=== PATIENT | female | born 1950 ===

== ENCOUNTER 2016-11-08 10:13 | Emergency (ER) | payer MEDICAID ==
[2016-11-08 10:17] VITALS: BMI 29.7
[2016-11-08 10:18] VITALS: RESP 18
[2016-11-08] MEDS ORDERED: Sodium Chloride 0.9% 1,000 ML IV ONE (10:43)
[2016-11-08 11:04] LABS: RBC URINE 573 /hpf (0-3); URINE BILIRUBIN NEGATIVE (NEGATIVE); URINE BLOOD 3+ (NEGATIVE); URINE COLOR Yellow (YELLOW); URINE GLUCOSE (UA) NORMAL (Normal); URINE KETONE NEGATIVE (NEGATIVE); URINE LEUKOCYTE ESTERASE NEG Leu/uL (Negative); URINE PROTEIN 2+ mg/dL (NEGATIVE); URINE UROBILINOGEN NORMAL mg/dL (0.2-1.0)
[2016-11-08] MEDS ORDERED: Sodium Chloride 0.9% 1,000 ML ONE (11:04)
[2016-11-08 11:08] LABS: BASO % 0.6 % (0.0-2.0); EOS # 0.1 K/uL (0.0-0.7); EOS % 1.1 % (0.0-4.0); LYMPH # 1.9 K/uL (1.0-4.3); LYMPH % 27.3 % (20.0-40.0); MEAN CELL VOLUME 92.9 fL (81.0-99.0); MEAN CORPUSCULAR HEMOGLOBIN 31.4 pg (27.0-31.0); MEAN CORPUSCULAR HGB CONC 33.8 g/dL (33.0-37.0); MEAN PLATELET VOLUME 9.1 fL (7.2-11.7); MONO # 0.5 K/uL (0.0-0.8); MONO % 7.2 % (0.0-10.0); RED CELL DISTRIBUTION WIDTH 13.2 % (11.5-14.5); WHITE BLOOD COUNT 7.1 K/uL (4.8-10.8)
[2016-11-08 11:16] LABS: CHLORIDE 107 mmol/L (98-107); POTASSIUM 4.1 mmol/L (3.6-5.2); SODIUM 142 mmol/L (132-148)
[2016-11-08 11:19] LABS: ALB/GLOB RATIO 1.3 (1.0-2.1); ALKALINE PHOSPHATASE 60 U/L (38-126); ALT/SGPT 26 U/L (9-52); AST/SGOT 26 U/L (14-36); BILIRUBIN,TOTAL 1.5 mg/dL (0.2-1.3); BLOOD UREA NITROGEN 19 mg/dL (7-17); CALCIUM 9.4 mg/dl (8.6-10.4); CARBON DIOXIDE 28 mmol/L (22-30); GFR AFRICAN-AMERICAN > 60; GLUCOSE,RANDOM 96 mg/dL (65-105); TOTAL PROTEIN 7.1 g/dL (6.3-8.3)
--- NOTE | 2016-11-08 12:07 | C.PDOC ---
History Of Present Illness 65 y/o female, postmenopausal, presents to ED for evaluation of pelvic cramping and intermittent vaginal bleeding for the last 4 days. Pt denies previous episode of postmenopausal vaginal bleeding. (+) dysuria. Otherwise, denies nausea, vomiting, diarrhea, or fever. Time Seen by Provider: 11/08/16 10:22 Chief Complaint (Nursing): Female Genitourinary History Per: Patient History/Exam Limitations: no limitations Onset/Duration Of Symptoms: Days (4) Current Symptoms Are (Timing): Still Present Severity: Mild Location Of Pain/Discomfort: Suprapubic Quality Of Discomfort: "Pain" Associated Symptoms: denies: Urinary Symptoms Exacerbating Factors: None Alleviating Factors: None Additional History Per: Patient Abnormal Vaginal Bleeding: Yes Past Medical History Reviewed: Historical Data, Nursing Documentation, Vital Signs Vital Signs: Last Vital Signs Temp 97.6 F 11/08/16 13:40 Pulse 50 L 11/08/16 13:40 Resp 18 11/08/16 13:40 BP 117/67 11/08/16 13:40 Pulse Ox 98 11/08/16 13:40 - Medical History PMH: Fractures, HTN, Hypercholesterolemia, Kidney Stones Surgical History: Appendectomy Family History: States: No Known Family Hx - Social History Hx Tobacco Use: No Hx Alcohol Use: No Hx Substance Use: No - Immunization History Hx Tetanus Toxoid Vaccination: No Hx Influenza Vaccination: No Hx Pneumococcal Vaccination: No Review Of Systems Except As Marked, All Systems Reviewed And Found Negative. Constitutional: Negative for: Fever, Chills Gastrointestinal: Positive for: Abdominal Pain. Negative for: Nausea, Vomiting , Diarrhea, Constipation Genitourinary: Positive for: Dysuria, Vaginal Bleeding, Pelvic Pain. Negative for: Frequency, Vaginal Discharge Musculoskeletal: Negative for: Back Pain Physical Exam - Physical Exam Appears: Well, Non-toxic, No Acute Distress Skin: Normal Color, Warm, Dry Eye(s): bilateral: Normal Inspection Oral Mucosa: Moist Cardiovascular: Rhythm Regular Respiratory: Normal Breath Sounds, No Rales, No Rhonchi, No Wheezing Gastrointestinal/Abdominal: Bowel Sounds, Soft, Tenderness (mild suprapubic TTP) , No Guarding, No Rebound, Other ((-)McBurney's) Back: Normal Inspection, No CVA Tenderness Extremity: Bilateral: Atraumatic, Normal ROM Neurological/Psych: Oriented x3 ED Course And Treatment - Laboratory Results Result Diagrams: 11/08/16 11:04 11/08/16 11:04 O2 Sat by Pulse Oximetry: 100 (on RA) Pulse Ox Interpretation: Normal - CT Scan/US Transvaginal US Other Rad Studies (CT/US): Read By Radiologist, Radiology Report Reviewed CT/US Interpretation: HISTORY: postmenopausal bleeding. COMPARISON: None available. TECHNIQUE: Real-time transabdominal pelvic ultrasound was performed. In addition a transvaginal pelvic ultrasound was necessary to better depict pelvic anatomy. FINDINGS: UTERUS: Measures 7.0 x 3.5 x 4.0 cm. Anteverted. ENDOMETRIUM: Measures 1.7 cm in diameter. Heterogeneous appearance with evidence of internal echoes, possibly blood products. CERVIX: No cervical abnormality identified. RIGHT OVARY: Not visualized. LEFT OVARY: Not visualized. FREE FLUID: No significant free fluid noted. OTHER FINDINGS : None. IMPRESSION: Markedly thickened endometrium measuring approximately 1.7 cm with heterogeneous appearance including internal echoes, possibly related to blood products. Recommend further evaluation as indicated. Underlying malignancy is not excluded. Bilateral ovaries are not visualized. Progress Note: Blood work, UA, transvaginal ultrasound ordered and reviewed. Patient was given IV fluids, and IV Morphine. Reevaluation Time: 13:30 Reassessment Condition: Improved (On reassessment, patient is resting comfortably, in no pain/distress. On exam, abdomen is soft and nontender. Blood work unremarkable except for elevated CA125. US shows thickened endometrium. Patient understands that she needs to follow up with [facility] within 1 week for further evaluation - was given copies of blood work and US to bring to her ob/gym Dr. Hardwick. UA (-) for UTI. She understands she should return to ED if symptoms worsen.) Disposition Counseled Patient/Family Regarding: Diagnosis, Need For Followup, Rx Given - Disposition Referrals: Justin Hardwick MD [Medical Doctor] - Disposition: HOME/ ROUTINE Disposition Time: 13:30 Condition: STABLE Additional Instructions: SIGA MONIQUE OB / GANG RIDER DENTRO DE 1 SEMANA USE MEDICAMENTOS PARA EL DOLOR ERIC SEA NECESARIO DEVUELVA A LA ELVIS DE EMERGENCIA SI LOS SNTOMAS EMPEORARAN Prescriptions: Naproxen [Naprosyn Tab] 375 mg PO BID PRN #15 tab PRN Reason: pain Instructions: Dysfunctional Uterine Bleeding (ED) Forms: [facility] (Welsh) Print Language: CZECH - Clinical Impression Clinical Impression: Postmenopausal bleeding - Scribe Statement The provider has reviewed the documentation as recorded by the Scribe Alessio Loomis All medical record entries made by the Champibe were at my direction and personally dictated by me. I have reviewed the chart and agree that the record accurately reflects my personal performance of the history, physical exam, medical decision making, and the department course for this patient. I have also personally directed, reviewed, and agree with the discharge instructions and disposition.
--- NOTE | 2016-11-08 13:10 | US ---
HISTORY: postmenopausal bleeding COMPARISON: None available. TECHNIQUE: Real-time transabdominal pelvic ultrasound was performed. In addition a transvaginal pelvic ultrasound was necessary to better depict pelvic anatomy. FINDINGS: UTERUS: Measures 7.0 x 3.5 x 4.0 cm. Anteverted. ENDOMETRIUM: Measures 1.7 cm in diameter. Heterogeneous appearance with evidence of internal echoes, possibly blood products. CERVIX: No cervical abnormality identified. RIGHT OVARY: Not visualized. LEFT OVARY: Not visualized. FREE FLUID: No significant free fluid noted. OTHER FINDINGS: None. IMPRESSION: Markedly thickened endometrium measuring approximately 1.7 cm with heterogeneous appearance including internal echoes, possibly related to blood products. Recommend further evaluation as indicated. Underlying malignancy is not excluded. Bilateral ovaries are not visualized.
[2016-11-08 13:44] VITALS: BP 117/67; PULSE 50; TEMP 97.6
[2016-11-09 23:55] VITALS: O2SAT 100
== END 2016-11-08 13:58 | disposition home or self-care (01) ==
LOC: C.ER 10:13
DX: N95.0 Postmenopausal bleeding (principal)
CPT/HCPCS: 76830; 76856; 80053; 81001; 85025; 86304; 87086; 96361; 96374; 99285; J2270; J7040

== ENCOUNTER 2017-04-07 10:03 | Inpatient (IN) | payer MEDICAID ==
[2017-04-07 10:25] VITALS: BMI 29.0
[2017-04-07] MEDS ORDERED: Sodium Chloride 0.9% 1,000 ML IV ONE (10:41)
[2017-04-07] MEDS ORDERED: Sodium Chloride 0.9% 1,000 ML ONE (10:57)
--- NOTE | 2017-04-07 10:59 | C.PDOC ---
History Of Present Illness 66 y/o female with PMHx of Diverticulitis and HTN presents to ED with complaints of diffuse abdominal pain but worse on LLQ "for a few days". Patient reports 2 days ago she ate at a buffet and thinks that might have triggered symptoms. Patient also complaints of non bloody diarrhea and emesis. Patient denies fever, chills, back pain, urinary symptoms or any other complaints at this time. Time Seen by Provider: 04/07/17 10:26 Chief Complaint (Nursing): Abdominal Pain History Per: Patient History/Exam Limitations: no limitations Onset/Duration Of Symptoms: Days Current Symptoms Are (Timing): Still Present Location Of Pain/Discomfort: Diffuse, LLQ Past Medical History Reviewed: Historical Data, Nursing Documentation, Vital Signs Vital Signs: Last Vital Signs Temp 97.3 F L 04/08/17 08:00 Pulse 63 04/08/17 08:00 Resp 20 04/08/17 08:00 BP 125/75 04/08/17 08:00 Pulse Ox 99 04/08/17 08:00 - Medical History PMH: Diverticulitis, Fractures, HTN, Hypercholesterolemia, Kidney Stones Surgical History: Appendectomy Family History: States: No Known Family Hx - Social History Hx Tobacco Use: No Hx Alcohol Use: No Hx Substance Use: No - Immunization History Hx Tetanus Toxoid Vaccination: No Hx Influenza Vaccination: No Hx Pneumococcal Vaccination: No Review Of Systems Constitutional: Negative for: Fever, Chills Gastrointestinal: Positive for: Vomiting, Abdominal Pain, Diarrhea. Negative for: Hematochezia, Hematemesis Genitourinary: Negative for: Dysuria, Hematuria Musculoskeletal: Negative for: Back Pain Skin: Negative for: Rash Physical Exam - Physical Exam Appears: Non-toxic, No Acute Distress Skin: Warm, Dry, No Rash Head: Atraumatic, Normacephalic Eye(s): bilateral: Normal Inspection Oral Mucosa: Moist Neck: Normal ROM, Supple Cardiovascular: Rhythm Regular Respiratory: Normal Breath Sounds, No Rales, No Rhonchi, No Wheezing Gastrointestinal/Abdominal: Soft, Tenderness (Diffuse worse on LLQ), No Guarding , No Rebound Back: No CVA Tenderness Extremity: Normal ROM, Capillary Refill (<2 seconds) Neurological/Psych: Oriented x3 ED Course And Treatment - Laboratory Results Result Diagrams: 04/08/17 07:18 04/08/17 07:18 O2 Sat by Pulse Oximetry: 97 (RA) Pulse Ox Interpretation: Normal Medical Decision Making Medical Decision Making: ro pancreatitsi, diverticulitis, colitis- labs imaging pending 528: pt reassesed: pain improving. requested admission for elevated lipase. pt initially declined, however now agrees. discussed with dr del castillo accepts for admission. Disposition - Disposition Disposition: HOSPITALIZED Disposition Time: 17:01 Condition: UNKNOWN - Clinical Impression Clinical Impression: Pancreatitis, Diverticulitis - Scribe Statement The provider has reviewed the documentation as recorded by the Scribjoselyn Dickson All medical record entries made by the Scribe were at my direction and personally dictated by me. I have reviewed the chart and agree that the record accurately reflects my personal performance of the history, physical exam, medical decision making, and the department course for this patient. I have also personally directed, reviewed, and agree with the discharge instructions and disposition. Decision To Admit - Pt Status Changed To: Hospital Disposition Of: Inpatient - Admit Certification Admit to Inpatient:: After my assessment, the patient will require hospitalization for at least two midnights. This is because of the severity of symptoms shown, intensity of services needed, and/or the medical risk in this patient being treated as an outpatient. - InPatient: Physician Admission Certification:: pt with pancreatitis - . Bed Request Type: Regular Admitting Physician: Frankie Del Castillo Jr. Patient Diagnosis: Pancreatitis, Diverticulitis
[2017-04-07 11:26] LABS: BASO % 0.3 % (0.0-2.0); EOS # 0.2 K/uL (0.0-0.7); EOS % 1.9 % (0.0-4.0); HEMOGLOBIN 13.3 g/dL (11.0-16.0); LYMPH % 24.6 % (20.0-40.0); MEAN CELL VOLUME 91.6 fL (81.0-99.0); MEAN CORPUSCULAR HEMOGLOBIN 31.6 pg (27.0-31.0); MEAN CORPUSCULAR HGB CONC 34.5 g/dL (33.0-37.0); MEAN PLATELET VOLUME 9.3 fL (7.2-11.7); MONO # 0.8 K/uL (0.0-0.8); MONO % 10.5 % (0.0-10.0); NEUT % 62.7 % (50.0-75.0); RBC 4.22 Mil/uL (3.80-5.20); RED CELL DISTRIBUTION WIDTH 12.9 % (11.5-14.5)
[2017-04-07 11:29] LABS: INR 0.9; PROTHROMBIN TIME 10.7 SECONDS (9.7-12.2)
[2017-04-07 11:53] LABS: ALB/GLOB RATIO 1.3 (1.0-2.1); ALBUMIN 3.9 g/dL (3.5-5.0); ALT/SGPT 25 U/L (9-52); AST/SGOT 26 U/L (14-36); BLOOD UREA NITROGEN 27 mg/dL (7-17); GFR AFRICAN-AMERICAN > 60; GFR NON-AFRICAN AMERICAN 50; LIPASE 656 U/L (23-300)
[2017-04-07] MEDS ORDERED: Iohexol 300 100 ML IJ ONE (12:31)
[2017-04-07 14:08] LABS: SQUAMOUS EPITHIAL 3 /hpf (0-5); URINE BILIRUBIN NEGATIVE (NEGATIVE); URINE BLOOD NEGATIVE (NEGATIVE); URINE CLARITY Clear (Clear); URINE COLOR Yellow (YELLOW); URINE GLUCOSE (UA) NORMAL (Normal); URINE LEUKOCYTE ESTERASE NEG Leu/uL (Negative); URINE NITRATE NEGATIVE (NEGATIVE); URINE PROTEIN NEGATIVE (NEGATIVE); URINE UROBILINOGEN NORMAL mg/dL (0.2-1.0)
[2017-04-07] MEDS ORDERED: Iodixanol 320 MG/ML 100 ML BOTTLE IV ONE (15:48)
--- NOTE | 2017-04-07 16:49 | CT ---
PROCEDURE: CT scan of the abdomen and pelvis HISTORY: Dated 04/07/2017 epigastric and left lower quadrant pain COMPARISON: No prior study available comparison correlation made with pelvic ultrasound 11/08/2016. . TECHNIQUE: Contrast dose: Radiation dose: Total exam DLP = 921.39 mGy-cm. This CT exam was performed using one or more of the following dose reduction techniques: Automated exposure control, adjustment of the mA and/or kV according to patient size, and/or use of iterative reconstruction technique. FINDINGS: LOWER THORAX: Mild passive/dependent type atelectasis both posterior lower lung herrera. No consolidation or effusion. . No evidence basilar pneumothorax. Heart size is mildly enlarged. No significant pericardial effusion. Tiny hiatal hernia. LIVER: Liver exhibits normal size measuring approximately 15 cm in CC dimension. No obvious hepatic mass collection or calcification. . Portal and splenic veins are opacified. GALLBLADDER AND BILE DUCTS: Gallbladder has been surgically resected with metallic clips in the gallbladder fossa region. PANCREAS: The pancreas pancreas is grossly unremarkable without masses collections or calcifications. . SPLEEN: Unremarkable. ADRENALS: There are no adrenal lesions seen. KIDNEYS AND URETERS: Kidneys that demonstrate relatively symmetric nephrograms. . There a small cyst lateral aspect midpole left kidney that measures approximately 14.7 mm and a 2nd small cyst seen along the medial border mid to lower pole measuring 12 mm. . Small exophytic cysts posterolateral aspect upper pole right kidney and posterior midpole right kidney VASCULATURE: Unremarkable. No aortic aneurysm. BOWEL: Evaluation of bowel is limited due to the lack of oral contrast material. Stomach is incompletely distended. Visualized small bowel exhibit normal contour and caliber. No evidence mechanical small bowel obstruction. . Apparent postoperative changes involving the cecum with what appears represent the radiopaque at anastomosis suture material. Clinical correlation with surgical history recommended. . There are multiple colonic diverticula the bulk which seen along the sigmoid and descending colon. There is however a segment of distal descending -sigmoid colon junction exhibits wall thickening. Rule out mild diverticulitis or colitis. Clinical correlation recommended. APPENDIX: Normal appendix. PERITONEUM: Unremarkable. No free fluid. No free air. LYMPH NODES: Multiple small nonspecific retroperitoneal lymph nodes. . BLADDER: Urinary bladder is incompletely distended which presumably in part accounts thick-walled appearance. Possibility of a cystitis not excluded. . REPRODUCTIVE: Status post hysterectomy. BONES: No the osseous structures appear grossly intact however minor multilevel degenerative spondylosis of the lower thoracic and lumbar spine. OTHER FINDINGS: None. IMPRESSION: Diverticulosis. There is a segment distal descending/sigmoid colon junction that exhibits wall thickening with colonic diverticula. Rule out the mild diverticulitis or possibly colitis. Postoperative changes cecum as detailed above. . Bilateral renal cysts. Status post cholecystectomy and hysterectomy. .
[2017-04-07 19:27] VITALS: RESP 20
[2017-04-07] MEDS: Sodium Chloride 0.9% 1,000 ML IV SCH (20:39)
--- NOTE | 2017-04-07 21:37 | CP.PCM.HP ---
History of Present Illness - History of Present Illness History of Present Illness: CC: " Lower abdominal pain" HPI: Patient is a 66 year old female with past medical history of gout , diverticulitis, hypercholesterolemia and hypertension, who presents with complaints of lower abdominal pain (RLQ>LLQ) with moderate epigastric pain, which started yesterday. Patient states that at the onset of her symptoms, her pain was 10/10 and drinking club soda and resting provided minimal relief. Patient denies any radiation and currently rates her pain a 4/10 after receiving pain medication in the ED. Patient admits to associated symptoms of diarrhea; she has loose stool x4 yesterday and x2 prior to coming to the ED. Patient admits to nausea and 2 episodes of vomiting. Patient denies chest pain, palpitations, SOB, flank pain, hematochezia, fever and chills. PMD: Dr. Quinton Phelps PMHx: Gout, diverticulitis, hypercholesterolemia and hypertension\\ PSHx: Appendectomy at age 14, Cholecystectomy (in the ), hysterectomy ( January) FHx: Father ( HTN) Medications: As per josey review Allergies: Penicillins; rxn: Hives Social Hx: lives with partner, unemployed, > 10 years of tobacco use ( 1 pack per week), Denies current or former use of ETOH and illicit drugs Present on Admission - Present on Admission Any Indicators Present on Admission: No Review of Systems - Constitutional Constitutional: Headache. absent: Chills, Fever, Weakness - EENT Ears: absent: Dizziness - Cardiovascular Cardiovascular: absent: Chest Pain, Chest Pain at Rest, Chest Pain with Activity , Diaphoresis, Dyspnea, Lightheadedness, Palpitations - Respiratory Respiratory: absent: Dyspnea - Gastrointestinal Gastrointestinal: Abdominal Pain, Diarrhea, Nausea, Vomiting - Neurological Neurological: absent: Dizziness - Psychiatric Psychiatric: Change in Appetite. absent: Anxiety - Hematologic/Lymphatic Hematologic: absent: Easy Bruising Past Patient History - Past Social History Smoking Status: Former Smoker - CARDIAC Hx Hypercholesterolemia: Yes Hx Hypertension: Yes - RENAL Hx Kidney Stones: Yes - MUSCULOSKELETAL/RHEUMATOLOGICAL Hx Fractures: Yes - GASTROINTESTINAL Hx Diverticulitis: Yes - PSYCHIATRIC Hx Substance Use: No - SURGICAL HISTORY Hx Appendectomy: Yes - ANESTHESIA Hx Anesthesia: Yes Hx Anesthesia Reactions: No Meds Home Medications: Home Medication List Medication Instructions Recorded Confirmed Type Ciprofloxacin [Cipro] 500 mg PO BID #14 tab 04/07/17 Rx metroNIDAZOLE [Flagyl] 500 mg PO TID #21 tab 04/07/17 Rx Allergies/Adverse Reactions: Allergies Allergy/AdvReac Type Severity Reaction Status Date / Time Penicillins Allergy RASH Verified 04/07/17 10:36 Physical Exam - Constitutional Appears: No Acute Distress - Head Exam Head Exam: ATRAUMATIC, NORMAL INSPECTION - Eye Exam Eye Exam: EOMI, Normal appearance - ENT Exam ENT Exam: Mucous Membranes Moist - Respiratory Exam Respiratory Exam: Clear to Auscultation Bilateral, NORMAL BREATHING PATTERN. absent: Rales, Rhonchi, Wheezes - Cardiovascular Exam Cardiovascular Exam: REGULAR RHYTHM, +S1, +S2 - GI/Abdominal Exam GI & Abdominal Exam: Normal Bowel Sounds, Soft, Tenderness. absent: Guarding, Hypoactive Bowel Sounds, Mass, Organomegaly - Extremities Exam Extremities exam: Positive for: normal inspection. Negative for: calf tenderness, pedal edema - Back Exam Back exam: CVA tenderness (R). absent: CVA tenderness (L) Additional comments: No signs retroperitoneal hemorrhage, no jaundice - Psychiatric Exam Psychiatric exam: Normal Affect, Normal Mood - Skin Skin Exam: Normal Color Results - Vital Signs Recent Vital Signs: Last Vital Signs Temp 97.9 F 04/07/17 19:26 Pulse 63 04/07/17 19:26 Resp 20 04/07/17 19:26 BP 103/67 04/07/17 19:26 Pulse Ox 95 04/07/17 19:26 - Labs Result Diagrams: 04/07/17 11:13 04/07/17 11:13 Labs: Laboratory Results - last 24 hr 04/07/17 04/07/17 04/07/17 11:13 11:13 11:13 WBC 8.0 RBC 4.22 Hgb 13.3 Hct 38.6 MCV 91.6 MCH 31.6 H MCHC 34.5 RDW 12.9 Plt Count 211 MPV 9.3 Neut % (Auto) 62.7 Lymph % (Auto) 24.6 Sanders % (Auto) 10.5 H Eos % (Auto) 1.9 Baso % (Auto) 0.3 Neut # 5.0 Lymph # 2.0 Sanders # 0.8 Eos # 0.2 Baso # 0.0 PT 10.7 INR 0.9 APTT 26 Sodium 131 L Potassium 3.5 L Chloride 95 L Carbon Dioxide 30 Anion Gap 11 BUN 27 H Creatinine 1.1 Est GFR ( Amer) > 60 Est GFR (Non-Af Amer) 50 Random Glucose 90 Calcium 9.0 Total Bilirubin 1.6 H AST 26 ALT 25 Alkaline Phosphatase 71 Total Protein 6.8 Albumin 3.9 Globulin 2.9 Albumin/Globulin Ratio 1.3 Lipase 656 H Urine Color Urine Clarity Urine pH Ur Specific [place] Urine Protein Urine Glucose (UA) Urine Ketones Urine Blood Urine Nitrate Urine Bilirubin Urine Urobilinogen Ur Leukocyte Esterase Urine WBC (Auto) Urine RBC (Auto) Ur Squamous Epith Cells 04/07/17 14:02 WBC RBC Hgb Hct MCV MCH MCHC RDW Plt Count MPV Neut % (Auto) Lymph % (Auto) Sanders % (Auto) Eos % (Auto) Baso % (Auto) Neut # Lymph # Sanders # Eos # Baso # PT INR APTT Sodium Potassium Chloride Carbon Dioxide Anion Gap BUN Creatinine Est GFR ( Amer) Est GFR (Non-Af Amer) Random Glucose Calcium Total Bilirubin AST ALT Alkaline Phosphatase Total Protein Albumin Globulin Albumin/Globulin Ratio Lipase Urine Color Yellow Urine Clarity Clear Urine pH 5.0 Ur Specific [place] 1.011 Urine Protein Negative Urine Glucose (UA) Normal Urine Ketones Negative Urine Blood Negative Urine Nitrate Negative Urine Bilirubin Negative Urine Urobilinogen Normal Ur Leukocyte Esterase Neg Urine WBC (Auto) 1 Urine RBC (Auto) 2 Ur Squamous Epith Cells 3 Assessment & Plan (1) Abdominal pain Assessment and Plan: R/o pancreatitis, diverticulitis and colitis: On admission: Labs: Lipase (656), WBC: 8.0 Abd/Pelvis CT: Diverticulosis. There is a segment distal descending/sigmoid colon junction that exhibits wall thickening with colonic diverticula. Rule out the mild diverticulitis or possibly colitis. The pancreas pancreas is grossly unremarkable without masses collections or calcifications - Monitor lipase - f/u lipid panel - NPO - NS @ 125 mls/hr - Dilaudid 0.5mg IVP Q6H prn for pain control Status: Acute (2) Hypertension Assessment and Plan: Continue home medications: - Atenolol 50mg PO daily ( with BP and pulse parameter) - Chlorthalidone 25mg PO daily Status: Acute (3) Hypercholesteremia Assessment and Plan: Continue home medications: * Lipitor 20mg PO daily or crestor 10mg PO daily Status: Acute (4) Hx of gout Assessment and Plan: Continue home medication: * Allopurinol 100mg PO daily Status: Acute (5) Prophylactic measure Assessment and Plan: NPO GI: Protonix 20mg PO daily DVT: score of 2; SCDs and heparin 5,000 units Q12H Plans and management discussed with attending, Dr. Malcolm Status: Acute
[2017-04-07] MEDS ORDERED: Pneumococcal 23-Valent Vaccine IM ONE (23:34)
[2017-04-08] MEDS: Sodium Chloride 0.9% 1,000 ML IV SCH ×2 (05:02→13:32)
[2017-04-08 07:35] LABS: BASO % 0.4 % (0.0-2.0); EOS # 0.2 K/uL (0.0-0.7); EOS % 3.4 % (0.0-4.0); HEMOGLOBIN 11.4 g/dL (11.0-16.0); LYMPH # 2.1 K/uL (1.0-4.3); LYMPH % 31.7 % (20.0-40.0); MEAN CELL VOLUME 92.8 fL (81.0-99.0); MEAN CORPUSCULAR HEMOGLOBIN 31.9 pg (27.0-31.0); MEAN CORPUSCULAR HGB CONC 34.4 g/dL (33.0-37.0); MEAN PLATELET VOLUME 9.1 fL (7.2-11.7); MONO # 0.6 K/uL (0.0-0.8); MONO % 9.3 % (0.0-10.0); NEUT # 3.6 K/uL (1.8-7.0); NEUT % 55.2 % (50.0-75.0); NRBC % 0.1 % (0.0-2.0); RBC 3.56 Mil/uL (3.80-5.20); RED CELL DISTRIBUTION WIDTH 12.9 % (11.5-14.5); WHITE BLOOD COUNT 6.6 K/uL (4.8-10.8)
[2017-04-08 07:57] LABS: ALB/GLOB RATIO 1.3 (1.0-2.1); ALT/SGPT 23 U/L (9-52); AST/SGOT 19 U/L (14-36); BLOOD UREA NITROGEN 22 mg/dL (7-17); CALCIUM 8.5 mg/dl (8.6-10.4); GFR AFRICAN-AMERICAN > 60; GFR NON-AFRICAN AMERICAN 56; HDL CHOLESTEROL 67 mg/dL (30-70); LIPASE 164 U/L (23-300)
[2017-04-08 08:03] LABS: LDL CHOLESTEROL < 30 mg/dL (0-129)
[2017-04-08] MEDS ORDERED: Potassium Chloride 20 mEq/15 ml LIQ UD PO ONE (08:37)
[2017-04-08] MEDS ORDERED: Home Med 1 UNIT (Omeprazole [Omeprazole] 20 MG) PO SCH (10:00)
[2017-04-08] MEDS ORDERED: Pantoprazole 40 mg EC Tab PO SCH ×2 (10:00)
[2017-04-08 10:59] LABS: MAGNESIUM 1.5 mg/dL (1.6-2.3)
[2017-04-08] MEDS ORDERED: Pantoprazole 20 mg EC Tab PO SCH ×2 (11:15→11:30)
[2017-04-08 13:29] VITALS: O2SAT 97
--- NOTE | 2017-04-08 14:37 | CP.PCM.DIS ---
Provider - Provider Date of Admission: 04/07/17 17:48 Attending physician: Frankie Malcolm Jr, MD Primary care physician: Dr. Phelps Time Spent in preparation of Discharge (in minutes): 45 Hospital Course - Lab Results Lab Results: Most Recent Lab Values WBC 6.6 K/uL (4.8-10.8) 04/08/17 07:18 RBC 3.56 Mil/uL (3.80-5.20) L 04/08/17 07:18 Hgb 11.4 g/dL (11.0-16.0) 04/08/17 07:18 Hct 33.1 % (34.0-47.0) L 04/08/17 07:18 MCV 92.8 fL (81.0-99.0) 04/08/17 07:18 MCH 31.9 pg (27.0-31.0) H 04/08/17 07:18 MCHC 34.4 g/dL (33.0-37.0) 04/08/17:18 RDW 12.9 % (11.5-14.5) 04/08/17 07:18 Plt Count 179 K/uL (130-400) 04/08/17 07:18 MPV 9.1 fL (7.2-11.7) 04/08/17 07:18 Neut % (Auto) 55.2 % (50.0-75.0) 04/08/17 07:18 Lymph % (Auto) 31.7 % (20.0-40.0) 04/08/17 07:18 [place] % (Auto) 9.3 % (0.0-10.0) 04/08/17 07:18 Eos % (Auto) 3.4 % (0.0-4.0) 04/08/17 07:18 Baso % (Auto) 0.4 % (0.0-2.0) 04/08/17:18 Neut # 3.6 K/uL (1.8-7.0) 04/08/17 07:18 Lymph # 2.1 K/uL (1.0-4.3) 04/08/17 07:18 [place] # 0.6 K/uL (0.0-0.8) 04/08/17 07:18 Eos # 0.2 K/uL (0.0-0.7) 04/08/17 07:18 Baso # 0.0 K/uL (0.0-0.2) 04/08/17 07:18 PT 10.7 SECONDS (9.7-12.2) 04/07/17 11:13 INR 0.9 04/07/17 11:13 APTT 26 SECONDS (21-34) 04/07/17 11:13 Sodium 133 mmol/L (132-148) 04/08/17 07:18 Potassium 3.2 mmol/L (3.6-5.2) L 04/08/17 07:18 Chloride 102 mmol/L (98-107) 04/08/17 07:18 Carbon Dioxide 25 mmol/L (22-30) 04/08/17 07:18 Anion Gap 8 (10-20) L 04/08/17 07:18 BUN 22 mg/dL (7-17) H 04/08/17 07:18 Creatinine 1.0 mg/dL (0.7-1.2) 04/08/17 07:18 Est GFR ( Amer) > 60 04/08/17 07:18 Est GFR (Non-Af Amer) 56 04/08/17 07:18 Random Glucose 72 mg/dL (65-105) 04/08/17 07:18 Calcium 8.5 mg/dl (8.6-10.4) L 04/08/17 07:18 Phosphorus 3.2 mg/dL (2.5-4.5) 04/08/17 07:18 Magnesium 1.5 mg/dL (1.6-2.3) L 04/08/17 07:18 Total Bilirubin 1.5 mg/dL (0.2-1.3) H 04/08/17 07:18 AST 19 U/L (14-36) 04/08/17 07:18 ALT 23 U/L (9-52) 04/08/17 07:18 Alkaline Phosphatase 51 U/L (38-126) 04/08/17 07:18 Total Protein 5.4 g/dL (6.3-8.3) L 04/08/17 07:18 Albumin 3.0 g/dL (3.5-5.0) L D 04/08/17 07:18 Globulin 2.3 gm/dL (2.2-3.9) 04/08/17 07:18 Albumin/Globulin Ratio 1.3 (1.0-2.1) 04/08/17 07:18 Triglycerides 163 mg/dL (0-149) H D 04/08/17 07:18 Cholesterol 129 mg/dL (0-199) 04/08/17 07:18 LDL Cholesterol Direct < 30 mg/dL (0-129) 04/08/17 07:18 HDL Cholesterol 67 mg/dL (30-70) 04/08/17 07:18 Lipase 164 U/L (23-300) 04/08/17 07:18 Urine Color Yellow (YELLOW) 04/07/17 14:02 Urine Clarity Clear (Clear) 04/07/17 14:02 Urine pH 5.0 (5.0-8.0) 04/07/17 14:02 Ur Specific [place] 1.011 (1.003-1.030) 04/07/17 14:02 Urine Protein Negative mg/dL (NEGATIVE) 04/07/17 14:02 Urine Glucose (UA) Normal mg/dL (Normal) 04/07/17 14:02 Urine Ketones Negative mg/dL (NEGATIVE) 04/07/17 14:02 Urine Blood Negative (NEGATIVE) 04/07/17 14:02 Urine Nitrate Negative (NEGATIVE) 04/07/17 14:02 Urine Bilirubin Negative (NEGATIVE) 04/07/17 14:02 Urine Urobilinogen Normal mg/dL (0.2-1.0) 04/07/17 14:02 Ur Leukocyte Esterase Neg Han/uL (Negative) 04/07/17 14:02 Urine WBC (Auto) 1 /hpf (0-5) 04/07/17 14:02 Urine RBC (Auto) 2 /hpf (0-3) 04/07/17 14:02 Ur Squamous Epith Cells 3 /hpf (0-5) 04/07/17 14:02 - Hospital Course Hospital Course: CC: " Lower abdominal pain" HPI: Patient is a 66 year old female with past medical history of gout , diverticulitis, hypercholesterolemia and hypertension, who presents with complaints of lower abdominal pain (RLQ>LLQ) with moderate epigastric pain, which started yesterday. Patient states that at the onset of her symptoms, her pain was 10/10 and drinking club soda and resting provided minimal relief. Patient denies any radiation and currently rates her pain a 4/10 after receiving pain medication in the ED. Patient admits to associated symptoms of diarrhea; she has loose stool x4 yesterday and x2 prior to coming to the ED. Patient admits to nausea and 2 episodes of vomiting. Patient denies chest pain, palpitations, SOB, flank pain, hematochezia, fever and chills. PMD: Dr. Quinton Phelps PMHx: Gout, diverticulitis, hypercholesterolemia and hypertension\\ PSHx: Appendectomy at age 14, Cholecystectomy (in the ), hysterectomy ( January) FHx: Father ( HTN) Medications: As per josey review Allergies: Penicillins; rxn: Hives Social Hx: lives with partner, unemployed, > 10 years of tobacco use ( 1 pack per week), Denies current or former use of ETOH and illicit drugs Hospital course: Patient was admitted on 04/07/17 with lower abdominal pain in the right and left quadrants. In the ED, labs were drawn, imaging was done and medications were given (IV fluids, dilaudid, solumedrol, Ciprofloxacin and Flagyl). CT of the abdomen/pelvis showed diverticulosis and possibly colitis. Lipase was elevated on admission and then trended downwards, now within normal limits. Patient placed on NPO diet and kept on IV fluids and solumedrol. Patient 's home medications for hypertension, hypercholesterolemia, and gout were restarted, and conditions were monitored and managed throughout hospital course. Patient was seen and examined at bedside today. Patient has no complaints, denies abdominal pain, and requests food. Patient reports her last bowel movement was prior to arriving to the ED and has not had any episodes since. Patient is stable for discharge to home. Patient must take ciprofloxacin and Flagyl for 7 days and a medrol dose pack. Patient advised to eat bland diet at home. Patient must follow up with their PMD within 1-2 weeks of discharge. This is a summary of the hospital course, please see the medical records for a more detailed summary. Discharge Exam - Head Exam Head Exam: ATRAUMATIC, NORMAL INSPECTION - Eye Exam Eye Exam: EOMI, Normal appearance - ENT Exam ENT Exam: Mucous Membranes Moist - Respiratory Exam Respiratory Exam: Clear to PA & Lateral, NORMAL BREATHING PATTERN, UNREMARKABLE. absent: Rales, Rhonchi, Wheezes, Respiratory Distress - Cardiovascular Exam Cardiovascular Exam: REGULAR RHYTHM, +S1, +S2 - GI/Abdominal Exam GI & Abdominal Exam: Normal Bowel Sounds, Soft, Unremarkable. absent: Distended , Firm, Tenderness - Extremities Exam Extremities exam: normal inspection - Neurological Exam Neurological exam: Alert, Oriented x3 - Psychiatric Exam Psychiatric exam: Normal Affect, Normal Mood - Skin Skin Exam: Dry, Intact, Normal Color, Warm Discharge Plan - Discharge Medications Prescriptions: Ciprofloxacin [Cipro] 500 mg PO BID #14 tab Methylprednisolone [Medrol Dose Pack (21 tabs)] 4 mg PO ASDIR #21 mg metroNIDAZOLE [Flagyl] 500 mg PO TID #21 tab - Follow Up Plan Condition: UNKNOWN Disposition: HOME/ ROUTINE Instructions: Ciprofloxacin (By mouth), Metronidazole (By mouth), Methylprednisolone (By mouth), Pancreatitis (ED), Diverticulitis (DC) Additional Instructions: Patient is stable for discharge to home. Patient must continue home medications. Patient must start new medications as prescribed: 1. Ciprofloxacin 500mg PO BID for 7 days. 2. Flagyl 500mg PO TID for 7 days. 3. Medrol Dose Pack- take as directed. [Prescriptions sent electronically to pharmacy.] Patient should continue with bland diet at home. Patient must follow up with PMD within 1-2 weeks of discharge. If symptoms worsen or reoccur, patient should return to the ED. Referrals: [facility] [Outside] [facility] [Outside] Luis Donis MD [Staff Provider] -
[2017-04-08 16:24] VITALS: BP 109/71; PULSE 58; TEMP 98.1
== END 2017-04-08 17:06 | disposition home or self-care (01) | DRG 183 ==
LOC: C.ER 10:03 → C.9E 17:48 → C.3T 17:48
PROVIDERS: ADMIT Internal Medicine; ATTEND Internal Medicine
DX: K57.30 Diverticulosis of large intestine without perforation or abscess without bleeding (principal); K52.9 Noninfective gastroenteritis and colitis, unspecified; I10 Essential (primary) hypertension; R74.8 Abnormal levels of other serum enzymes; E78.00 Pure hypercholesterolemia, unspecified; M10.9 Gout, unspecified; Z87.442 Personal history of urinary calculi; Z87.891 Personal history of nicotine dependence; Z90.49 Acquired absence of other specified parts of digestive tract; Z90.710 Acquired absence of both cervix and uterus